=== PATIENT | female | born 1960 | race Caucasian/White ===

== ENCOUNTER 2022-08-01 10:53 | Outpatient (CLI) | payer MEDICAID ==
--- NOTE | 2022-08-02 16:42 | Mammography Report ---
BILATERAL DIGITAL SCREENING MAMMOGRAM 3D/2D WITH EXAGGERATED CC: 08/01/2022 CLINICAL: Routine screening. Baseline exam. No prior exams were available for comparison. Both breasts are heterogeneously dense, which may obscure small masses (category c / 51-75% glandular tissue). No significant masses, calcifications, or other findings are seen in either breast. IMPRESSION: NEGATIVE There is no mammographic evidence of malignancy. A 1 year screening mammogram is recommended. Based on the Tyrer Cuzick model (a risk assessment model) the patients lifetime risk is 12.1% and he r 10 year risk is 5.1%. According to the ACR, ACS, and NCCN guidelines, an annual breast MRI exam burton ng with mammogram is recommended if the patients lifetime risk is 20% or greater. This exam was interpreted at Station ID: [id number]. NOTE: For mammograms, a report in lay terms will be sent to the patient. Approximately 15% of breast malignancies will not be visualized mammographically. In the management of a palpable breast mass, a negative mammogram must not discourage biopsy of a clinically suspicious lesion. Electronically Signed By: Kameron [email or web address]:08/01/2022 13:50:00 ACR BI-RADS Category 1: Negative 3341F PARENCHYMAL PATTERN: (D) - The breast(s) demonstrate(s) heterogeneously dense fibroglandular parroberty ma. BI-RADS CATEGORY: (1) - 1 RECOMMENDATION: (ANNUAL) - Recommend routine annual screening mammography. [id number] 1 year screening LATERALITY: (B)
== END 2022-08-01 10:54 | disposition home or self-care (01) ==
LOC: DI.S 10:53
PROVIDERS: ATTEND Family Medicine
DX: Z12.31 Encounter for screening mammogram for malignant neoplasm of breast (principal)

== ENCOUNTER 2022-12-22 13:32 | Outpatient (CLI) | payer MEDICAID ==
--- NOTE | 2022-12-22 19:27 | XRAY Report ---
PROCEDURE: Hip w/Pelvis 2-3V LT INDICATIONS: L HIP PX, CHRONIC, WORSENING TECHNIQUE: AP pelvis with lateral view(s) of the left hip(s). COMPARISON: None. FINDINGS: Bones: No fractures or dislocations. Pelvic ring appears intact. No suspicious bony lesions. There is moderate superior joint space narrowing seen involving both hips. There is associated remode ling change, with subchondral sclerosis and osteophyte formation. Soft tissues: The visualized bowel gas pattern is normal. No suspicious soft tissue calcifications. Note is made of pelvic phleboliths. IMPRESSION: Moderate bilateral hip degenerative change. If it would be helpful for clinical management decision making, please consider a dedicated hip MRI f or further evaluation (assuming that there is no contraindication). This should be performed accordi ng to the arthrogram protocol, if there is strong clinical concern for a labral abnormality. Reviewed by: Virgilio Brody MD on 12/22/2022 6:25 PM [facility] Approved by: Virgilio Brody MD on 12/22/2022 6:25 PM [facility] Station ID: [id number]
== END 2022-12-22 13:33 | disposition home or self-care (01) ==
LOC: DI.S 13:32
PROVIDERS: ATTEND Family Medicine
DX: M16.0 Bilateral primary osteoarthritis of hip (principal)